=== PATIENT | female | born 1945 | race Caucasian/White ===

== ENCOUNTER 2022-03-05 11:51 | Day surgery (SDC) | payer MEDICARE, OTHER ==
[2022-03-05] MEDS ORDERED: Ondansetron 4 MG/2 ML SDV IVPUSH ONE (13:04)
[2022-03-05] MEDS ORDERED: Sodium Chloride 0.9% 1,000 ML IV STA (13:04)
[2022-03-05] MEDS ORDERED: HYDROmorphone 0.5 MG/0.5 ML Syringe IVPUSH ONE ×2 (13:04→15:10)
[2022-03-05] MEDS ORDERED: Albuterol 0.083% 2.5 MG/3 ML Neb Soln NEB ONE (16:40)
[2022-03-05] MEDS ORDERED: Lidocaine 1% 30 ML SDV ONE (16:50)
[2022-03-05] MEDS ORDERED: Lidocaine 1% 5 ML VIAL ONE (16:50)
[2022-03-05] MEDS ORDERED: Iopamidol 612 MG/ML 50 ML SDV ONE (16:50)
[2022-03-05] MEDS ORDERED: Sodium Chloride 0.9% 50 ML SDV ONE (16:50)
[2022-03-05] MEDS ORDERED: Propofol 200 MG/20 ML SDV ONE (16:51)
[2022-03-05] MEDS ORDERED: fentaNYL 250 MCG/5 ML SDV ONE (16:51)
[2022-03-05] MEDS ORDERED: Ondansetron 4 MG/2 ML SDV ONE (16:51)
[2022-03-05] MEDS ORDERED: Lactated Ringers 1,000 ML ONE (16:51)
[2022-03-05] MEDS ORDERED: Midazolam 1 MG/ML 2 ML SDV ONE (16:51)
[2022-03-05] MEDS ORDERED: Rocuronium 50 MG/5 ML Vial ONE (16:51)
[2022-03-05] MEDS ORDERED: ceFAZolin 2 GM Vial ONE (17:44)
[2022-03-05] MEDS ORDERED: Ondansetron 4 MG/2 ML SDV IVPUSH PRN (17:50)
[2022-03-05] MEDS ORDERED: fentaNYL 100 MCG/2 ML SDV IVPUSH PRN (17:50)
[2022-03-05] MEDS ORDERED: HYDROmorphone 0.5 MG/0.5 ML Syringe IVPUSH PRN ×2 (17:50→20:00)
[2022-03-05] MEDS ORDERED: Dexamethasone 4 MG/ML 5 ML MDV ONE (17:52)
[2022-03-05] MEDS ORDERED: Neostigmine Methylsulfate 10 MG/10 ML MDV ONE (18:00)
[2022-03-05] MEDS ORDERED: Ketamine 500 mg/10 ML MDV ONE (18:03)
[2022-03-05] MEDS ORDERED: ePHEDrine 50 MG/ML SDV ONE (18:53)
[2022-03-05] MEDS ORDERED: Acetaminophen/HYDROcodone 325-5 MG Tab PO PRN (20:00)
[2022-03-05] MEDS ORDERED: Docusate Sodium 100 MG Cap PO PRN (20:00)
[2022-03-05] MEDS ORDERED: Lactated Ringers 1,000 ML IV SCH (20:00)
[2022-03-05] MEDS ORDERED: Acetaminophen 325 MG Tab PO PRN (20:00)
== END 2022-03-06 10:15 | disposition home or self-care (01) ==
LOC: SUPCPDRO 11:51 → JD.ED 11:51 → JD.SDS 16:16 → JD.MS 22:42 → JD.SDS 03-06 10:15
PROVIDERS: ATTEND Surgery
DX: K80.12 Calculus of gallbladder with acute and chronic cholecystitis without obstruction (principal); K82.A1 Gangrene of gallbladder in cholecystitis; I10 Essential (primary) hypertension; E78.5 Hyperlipidemia, unspecified; Z88.8 Allergy status to other drugs, medicaments and biological substances; Z01.812 Encounter for preprocedural laboratory examination; Z79.899 Other long term (current) drug therapy; Z20.822 Contact with and (suspected) exposure to COVID-19
CPT/HCPCS: 36415; 47563; 51798; 76000; 76705; 80053; 85025; 93005; 94640; 96361; 96374; 96375; 96376; 99285; A9270; J0690; J1100; J1170; J2250; J2405; J2704; J2710; J3010; J3490; J7030; J7120; Q9967; U0002; 00790; 88304; 93010; 99100; 99140; 99284